=== PATIENT | female | born 2000 | race Caucasian/White ===

== ENCOUNTER 2021-06-11 14:25 | Emergency (ER) | payer OTHER, MEDICAID ==
[~2021-06-11] VITALS: Ht 154.9 cm; Wt 85.7 kg
[2021-06-11] MEDS ORDERED: NEURONTIN 300M300 M2 PO (14:36)
[2021-06-11] MEDS ORDERED: ZYPREXA ZYDIS5 MG PO (14:37)
[2021-06-11] MEDS ORDERED: ZYPREXA15 MG PO (14:37)
[2021-06-11 16:26] VITALS: BP 156/97
== END 2021-06-11 16:27 | disposition home or self-care (01) ==
LOC: M.ERS 14:25
DX: S63.501A Unspecified sprain of right wrist, initial encounter (principal); J45.909 Unspecified asthma, uncomplicated; F17.210 Nicotine dependence, cigarettes, uncomplicated; Z98.890 Other specified postprocedural states; Z79.899 Other long term (current) drug therapy; Z88.8 Allergy status to other drugs, medicaments and biological substances; W19.XXXA Unspecified fall, initial encounter; Y93.89 Activity, other specified; Y92.89 Other specified places as the place of occurrence of the external cause; Y99.8 Other external cause status

== ENCOUNTER 2021-06-28 12:37 | Emergency (ER) | payer OTHER, MEDICAID ==
[~2021-06-28] VITALS: Ht 154.9 cm; Wt 72.6 kg
[~2021-06-28 12:37] MED LIST: NEURONTIN 300M300 M2 PO; ZYPREXA ZYDIS5 MG PO; ZYPREXA15 MG PO
[2021-06-28 13:48] LABS: ABSOLUTE BASOPHILS 0.1 thou/uL (0.0-0.2); ABSOLUTE EOSINOPHILS 0.1 thou/uL (0.0-0.7); ABSOLUTE LYMPHOCYTES 1.8 thou/uL (0.8-5.3); ABSOLUTE MONOCYTES 0.3 thou/uL (0.0-1.2); ABSOLUTE NEUTROPHILS 2.8 thou/uL (1.6-8.1); EOSINOPHILS 1.6 %; HEMATOCRIT 36.2 % (37.0-47.0); HEMOGLOBIN 12.1 gm/dL (12.0-15.0); LYMPHOCYTES 35.1 %; MCH 25.6 pg (26.0-34.0); MCHC 33.4 g/dL (28.0-37.0); MCV 76.7 fL (80.0-100.0); MONOCYTES 5.9 %; MPV 8.2 fl. (7.2-11.1); NUCLEATED RBCS 0 /100WBC; PLATELET COUNT* 208 thou/uL (150-400); POLYS 56.4 %; RBC 4.73 mil/uL (4.20-5.00); RDW-CV 16.3 % (10.5-14.5)
[2021-06-28 14:31] LABS: CALCIUM 8.9 mg/dL (8.5-10.1); CREATININE 0.9 mg/dL (0.6-1.3)
[2021-06-28 14:42] LABS: ALBUMIN 3.7 g/dL (3.4-5.0); TOTAL BILIRUBIN 0.2 mg/dL (<0.1-1.0); TOTAL PROTEIN 6.7 g/dL (6.4-8.2)
[2021-06-28] MEDS ORDERED: VENTOLIN HFA 1818 GM INH (14:51)
[2021-06-28] MEDS ORDERED: PREDNISONE 20 M20 MG PO (14:52)
[2021-06-28 15:04] VITALS: BP 140/60
--- NOTE | 2021-06-29 10:25 | EKG ---
[place] [address] ELECTROCARDIOGRAM REPORT Name: ALFREDO REYES Room: [facility]#: [id number] Admission: 06/28/21 Attend Phys: Discharge: 06/28/21 Date of : 89 Date of Service: 06/28/21 1306 Report #: [id number] THIS REPORT FOR: //name// [facility] ED Test Date: 2021-06-28 Test Time: 13:06:10 Pat Name: ALFREDO REYES Department: Room: Gender: Program Arranger: : 2000 Requested By: Lindsay Long Order Number: [id number] MD: Haris Mills Measurements Intervals [place] Rate: 75 P: 1 CT: 123 QRS: 86 QRSD: 112 T: -14 QT: 388 QTc: 434 Interpretive Statements Sinus rhythm Borderline T abnormalities, inferior leads No previous ECG available for comparison Electronically Signed On 06-29-2021 10:24:39 CDT by Haris Mills [email or web address] <ELECTRONICALLY SIGNED> By: Haris Mills MD, [facility] 06/29/21 [facility] 1306 130 Haris Mills MD, FAC /EPI
== END 2021-06-28 15:05 | disposition home or self-care (01) ==
LOC: M.ERS 12:37
PROVIDERS: Nurse Practitioner Family
DX: J04.0 Acute laryngitis (principal); Z20.822 Contact with and (suspected) exposure to COVID-19; J06.9 Acute upper respiratory infection, unspecified; J45.909 Unspecified asthma, uncomplicated; F15.10 Other stimulant abuse, uncomplicated; F12.10 Cannabis abuse, uncomplicated; Z98.890 Other specified postprocedural states; Z88.8 Allergy status to other drugs, medicaments and biological substances

== ENCOUNTER 2021-07-10 00:27 | Emergency (ER) | payer OTHER, MEDICAID ==
[~2021-07-10] VITALS: Ht 154.9 cm; Wt 72.6 kg
[~2021-07-10 00:27] MED LIST changes: +PREDNISONE 20 M20 MG PO; +VENTOLIN HFA 1818 GM INH
[2021-07-10 01:37] VITALS: BP 148/85
== END 2021-07-10 01:37 | disposition home or self-care (01) ==
LOC: M.ERS 00:27
DX: J98.01 Acute bronchospasm (principal); F17.210 Nicotine dependence, cigarettes, uncomplicated; Z98.890 Other specified postprocedural states; Z79.899 Other long term (current) drug therapy; Z88.8 Allergy status to other drugs, medicaments and biological substances; Z91.018 Allergy to other foods

== ENCOUNTER 2021-07-24 17:50 | Emergency (ER) | payer OTHER, MEDICAID ==
[~2021-07-24] VITALS: Ht 154.9 cm; Wt 72.6 kg
[2021-07-24 18:30] VITALS: BP 123/74
[2021-07-24] MEDS ORDERED: CEPHALEXIN500 MG PO (18:37)
== END 2021-07-24 18:43 | disposition home or self-care (01) ==
LOC: M.ERS 17:50
DX: H00.015 Hordeolum externum left lower eyelid (principal); J45.909 Unspecified asthma, uncomplicated; F17.210 Nicotine dependence, cigarettes, uncomplicated; Z98.890 Other specified postprocedural states; Z79.899 Other long term (current) drug therapy; Z88.8 Allergy status to other drugs, medicaments and biological substances; Z91.018 Allergy to other foods

== ENCOUNTER 2021-08-20 10:01 | Emergency (ER) | payer OTHER, MEDICAID ==
[~2021-08-20] VITALS: Ht 154.9 cm; Wt 81.7 kg
[~2021-08-20 10:01] MED LIST changes: +CEPHALEXIN500 MG PO
[2021-08-20 10:22] VITALS: BP 135/86
== END 2021-08-20 10:24 | disposition home or self-care (01) ==
LOC: M.ERS 10:01
DX: L72.3 Sebaceous cyst (principal); J45.909 Unspecified asthma, uncomplicated; F17.210 Nicotine dependence, cigarettes, uncomplicated; Z88.6 Allergy status to analgesic agent; Z88.8 Allergy status to other drugs, medicaments and biological substances; Z98.890 Other specified postprocedural states